=== PATIENT | male | born 1985 | race Caucasian/White ===

== ENCOUNTER 2018-03-30 10:44 | Inpatient (IN) | payer SELFPAY ==
[~2018-03-30] VITALS: Ht 157.5 cm; Wt 66.7 kg
[2018-03-30 01:00] VITALS: BP 99/55
[2018-03-30] MEDS ORDERED: ONDANSETRON HCL 4MG/2ML INJ IV STA (11:03)
[2018-03-30] MEDS ORDERED: SODIUM CHLORIDE 0.9% 1,000 ML IV ONE (11:03)
[2018-03-30] MEDS ORDERED: LORAZEPAM 2MG/ML CPJ IV ONE (11:15)
[2018-03-30 11:55] LABS: CHLORIDE 98 mEq/L (98-107)
[2018-03-30 12:00] LABS: ETHANOL BLOOD < 10 mg/dL
[2018-03-30 12:14] LABS: INR 1.3; PARTIAL THROMBOPLASTIN TIME 31.3 sec (23.4-31.0); PROTHROMBIN TIME 12.7 sec (9.1-11.1)
[2018-03-30 12:22] LABS: HEMATOCRIT. 53.9 % (42.0-52.0); HEMOGLOBIN. 18.4 g/dL (14.0-18.0); MEAN CORPUSCULAR VOLUME 85.2 fL (80.0-94.0); MEAN PLATELET VOLUME 9.4 fl (7.4-10.4); PLATELET 288 x1000/uL (130-400); RED BLOOD CELL COUNT 6.33 mill/uL (4.7-6.1); RED CELL DISTRIBUTION WIDTH 12.8 % (11.6-14.6)
[2018-03-30] MEDS ORDERED: FAMOTIDINE 20MG/2ML VIAL IV ONE (12:30)
[2018-03-30] MEDS ORDERED: ASPIRIN 325MG EC TABLET PO ONE (12:30)
[2018-03-30] MEDS ORDERED: MAGNESIUM/ALUMINUM HYDROXIDE/SIMETHICONE 30ML UDC PO ONE (12:30)
[2018-03-30] MEDS ORDERED: LEVOFLOXACIN 500MG PREMIX 100 ML IV ONE (12:45)
[2018-03-30] MEDS ORDERED: NOREPINEPHRINE 4 MG in DEXT 5% WATER 246 ML IV ONE ×2 (13:30→16:30)
[2018-03-30 13:45] LABS: PLATELET ESTIMATE NORMAL
[2018-03-30] MEDS ORDERED: NOREPINEPHRINE 4 MG in DEXTROSE 5% WATER 250 ML IV PRN (13:45)
[2018-03-30] MEDS ORDERED: ENOXAPARIN 80MG/0.8ML SYR SUBCUT ONE ×2 (13:45→18:21)
[2018-03-30] MEDS ORDERED: PHENYLEPHRINE 20 MG in DEXT 5% WATER 498 ML IV PRN ×2 (13:45→19:15)
[2018-03-30 13:51] LABS: BG BASE EXCESS -4.4 mmol/L (-2.0-2.0); BG CARBOXYHEMOGLOBIN 0.4 % (0.5-1.5); BG DEOXYHEMOGLOBIN 15.3 % (0.0-5.0); BG FRACTION INSPIRED OXYGEN 100; BG METHEMOGLOBIN 0.5 % (0.0-1.5); BG OXYGEN SATURATION 84.6 % (92.0-98.5); BG OXYHEMOGLOBIN 83.8 % (94.0-97.0); BG PCO2 31.1 mmHg (35.0-45.0); BG PH 7.404 (7.350-7.450); BG PO2 50.9 mmHg (75.0-100.0); BG SAMPLE SITE RIGHT BRACHIAL; BG VENT MODE MASK - NRB
[2018-03-30] MEDS ORDERED: CALCIUM CHLORIDE 1GM/10ML SYR IV ONE (14:00)
[2018-03-30] MEDS ORDERED: PROPOFOL 10MG/ML 100ML 100 ML IV ONE ×2 (14:00→17:30)
[2018-03-30] MEDS ORDERED: EPINEPHRINE 0.1MG/ML (1:10,000) 10ML SYR ONE ×2 (14:00)
[2018-03-30] MEDS ORDERED: ATROPINE SULFATE 1MG/10ML SYR ONE (14:00)
[2018-03-30] MEDS ORDERED: SUCCINYLCHOLINE CHLORIDE 200MG/10ML VIAL IV ONE ×2 (14:00)
[2018-03-30] MEDS ORDERED: NORMAL SALINE 0.9% 10 ML SYR ONE (14:00)
[2018-03-30] MEDS ORDERED: ETOMIDATE 2MG/ML 10ML VIAL IV ONE (14:00)
[2018-03-30] MEDS ORDERED: SODIUM BICARBONATE 7.5% 0.9 MEQ/ML 50ML SYR IV ONE ×2 (14:00)
[2018-03-30] MEDS ORDERED: LORAZEPAM 2MG/ML CPJ ONE (14:25)
[2018-03-30 14:38] LABS: CREATINE KINASE 355 IU/L (39-308)
[2018-03-30 15:07] LABS: CLARITY URINE CLEAR (CLEAR); COLOR URINE DARK YELLOW (YELLOW); KETONES URINE 3+ (NEGATIVE); LEUKOCYTE ESTERASE URINE NEGATIVE (NEGATIVE); NITRITE URINE NEGATIVE (NEGATIVE); OCCULT BLOOD URINE TRACE (NEGATIVE); PROTEIN URINE 2+ (NEGATIVE); SPECIFIC GRAVITY URINE 1.037 (1.005-1.030)
[2018-03-30 15:13] LABS: *AMPHETAMINES SCREEN URINE PRESUMTIVE POSITIVE (NEGATIVE); *BARBITURATES SCREEN URINE NEGATIVE (NEGATIVE); *BENZODIAZEPINES SCREEN URINE NEGATIVE (NEGATIVE); *COCAINE SCREEN URINE NEGATIVE (NEGATIVE); METHADONE URINE SCREEN PRESUMTIVE POSITIVE (NEGATIVE); OPIATES URINE SCREEN NEGATIVE (NEGATIVE)
[2018-03-30 15:14] LABS: CANNABINOID URINE SCREEN PRESUMTIVE POSITIVE (NEGATIVE); PHENCYCLIDINE URINE SCREEN NEGATIVE (NEGATIVE)
[2018-03-30] MEDS ORDERED: CEFEPIME 2,000 MG in DEXT 5% WATER 100 ML IV SCH (16:00)
[2018-03-30] MEDS ORDERED: PANTOPRAZOLE SODIUM 40 MG/VIAL IV NR (16:00)
[2018-03-30] MEDS ORDERED: IPRATROPIUM/ALBUTEROL 0.5-3(2.5)MG/3ML NEB HHN PRN (16:00)
[2018-03-30] MEDS ORDERED: DEXT 5%/0.45% NACL 1000ML 1,000 ML IV SCH (16:15)
[2018-03-30] MEDS ORDERED: ACETAMINOPHEN 325MG TABLET PO PRN (16:30)
[2018-03-30 16:33] LABS: BG BASE EXCESS -7.5 mmol/L (-2.0-2.0); BG CARBOXYHEMOGLOBIN 0.2 % (0.5-1.5); BG DEOXYHEMOGLOBIN 13.6 % (0.0-5.0); BG FRACTION INSPIRED OXYGEN 100; BG METHEMOGLOBIN 0.4 % (0.0-1.5); BG OXYGEN SATURATION 86.3 % (92.0-98.5); BG OXYHEMOGLOBIN 85.8 % (94.0-97.0); BG PCO2 36.7 mmHg (35.0-45.0); BG PH 7.308 (7.350-7.450); BG PO2 57.6 mmHg (75.0-100.0); BG SAMPLE SITE RIGHT BRACHIAL; BG TIDAL VOLUME(mL) 550 mL; BG TOTAL HEMOGLOBIN 16.7 g/dL (12.0-18.0); BG VENT MODE VENT - A/C; BG VENT RATE 16 set
[2018-03-30 16:49] LABS: T4 FREE 1.35 ng/dL (0.76-1.46)
[2018-03-30] MEDS ORDERED: CEFEPIME 2,000 MG in DEXT 5% WATER 100 ML IV NR (17:30)
[2018-03-30] MEDS ORDERED: METRONIDAZOLE 500 MG PREMIX 100 ML IV SCH (17:30)
[2018-03-30] MEDS ORDERED: DIGOXIN 500MCG/2ML AMP IV NR (19:30)
[2018-03-30] MEDS ORDERED: MIDAZOLAM HCL 50 MG in DEXTROSE 5% WATER 50ML IV PRN (19:30)
[2018-03-30] MEDS ORDERED: VERAPAMIL HCL 2.5 MG/1 ML 2ML VIAL IV PRN (21:15)
[2018-03-30 22:10] LABS: BG BASE EXCESS -2.4 mmol/L (-2.0-2.0); BG CARBOXYHEMOGLOBIN 0.8 % (0.5-1.5); BG DEOXYHEMOGLOBIN 26.9 % (0.0-5.0); BG FRACTION INSPIRED OXYGEN 100; BG HCO3 ACT 20.8 mmol/L (22.0-26.0); BG METHEMOGLOBIN 0.2 % (0.0-1.5); BG OXYGEN SATURATION 72.8 % (92.0-98.5); BG OXYHEMOGLOBIN 72.1 % (94.0-97.0); BG PCO2 32.3 mmHg (35.0-45.0); BG PH 7.427 (7.350-7.450); BG PO2 37.1 mmHg (75.0-100.0); BG SAMPLE SITE RIGHT RADIAL; BG TIDAL VOLUME(mL) 500 mL; BG TOTAL HEMOGLOBIN 16.2 g/dL (12.0-18.0); BG VENT MODE VENT - A/C; BG VENT RATE 14 set
[2018-03-30] MEDS ORDERED: PROPOFOL 10MG/ML 100ML 100 ML IV PRN (23:13)
[2018-03-30] MEDS: DEXT 5%/0.45% NACL 1000ML 1,000 ML IV SCH (23:14)
[2018-03-30] MEDS ORDERED: ONDANSETRON HCL 4MG/2ML INJ IV PRN (23:14)
[2018-03-30] MEDS ORDERED: ALBUMIN HUMAN 25GM/100ML (25%) IV SCH (23:15)
[2018-03-30 23:16] VITALS: BP 73/49
[2018-03-30] MEDS: PANTOPRAZOLE SODIUM 40 MG/VIAL IV SCH (23:18)
[2018-03-30 23:30] VITALS: BP 87/55
[2018-03-30] MEDS: ALBUMIN HUMAN 25GM/100ML (25%) IV SCH (23:41)
[2018-03-30 23:44] VITALS: BP 100/65
[2018-03-30 23:47] VITALS: BP 100/40
[2018-03-31] VITALS (96 sets, daily range): BP systolic 61–155; BP diastolic 25–101
[2018-03-31] MEDS ORDERED: VASOPRESSIN 10 UNIT in SODIUM CHLORIDE 0.9% 99.5 ML IV SCH ×2
[2018-03-31] MEDS ORDERED: VANCOMYCIN 1250MG in DEXTROSE 5% WATER 250ML IV SCH (01:00)
[2018-03-31] MEDS: NOREPINEPHRINE 16 MG in DEXT 5% WATER 234 ML IV PRN ×2 (01:51→09:28)
[2018-03-31] MEDS: BUDESONIDE 0.5MG/2ML NEB HHN SCH ×3 (01:52→20:53)
[2018-03-31] MEDS: PHENYLEPHRINE 40 MG in DEXT 5% WATER 246 ML IV PRN ×2 (01:52→02:33)
[2018-03-31] MEDS: EPINEPHRINE 1 MG in SODIUM CHLORIDE 0.9% 249 ML IV PRN ×2 (01:57→06:08)
[2018-03-31] MEDS: VASOPRESSIN 10 UNIT in SODIUM CHLORIDE 0.9% 99.5 ML IV SCH ×5 (02:01→23:00)
[2018-03-31] MEDS: METRONIDAZOLE 500 MG PREMIX 100 ML IV SCH ×3 (02:35→17:06)
[2018-03-31] MEDS: CEFEPIME 2,000 MG in DEXT 5% WATER 100 ML IV SCH ×2 (02:35→14:20)
[2018-03-31 06:16] LABS: CREATINE KINASE MB FRACTION 15.5 ng/mL (0.5-3.6)
[2018-03-31] MEDS ORDERED: PHENYLEPHRINE 40 MG in DEXT 5% WATER 500 ML IV ONE (06:45)
[2018-03-31] MEDS: PHENYLEPHRINE 80 MG in DEXT 5% WATER 492 ML IV PRN ×3 (07:14→23:05)
[2018-03-31] MEDS: ALBUMIN HUMAN 25GM/100ML (25%) IV SCH ×2 (07:45→23:05)
[2018-03-31] MEDS: IPRATROPIUM BROMIDE (0.02%) 0.5MG/2.5ML NEB HHN SCH ×3 (08:00→20:53)
[2018-03-31 08:21] LABS: BG BASE EXCESS -2.5 mmol/L (-2.0-2.0); BG CARBOXYHEMOGLOBIN 0.5 % (0.5-1.5); BG DEOXYHEMOGLOBIN 44.9 % (0.0-5.0); BG FRACTION INSPIRED OXYGEN 100; BG HCO3 ACT 22.9 mmol/L (22.0-26.0); BG METHEMOGLOBIN 0.3 % (0.0-1.5); BG OXYGEN SATURATION 54.7 % (92.0-98.5); BG OXYHEMOGLOBIN 54.3 % (94.0-97.0); BG PH 7.355 (7.350-7.450); BG PO2 < 30.3 mmHg (75.0-100.0); BG SAMPLE SITE RIGHT BRACHIAL; BG TIDAL VOLUME(mL) 500 mL; BG TOTAL HEMOGLOBIN 13.8 g/dL (12.0-18.0); BG VENT MODE VENT - A/C; BG VENT RATE 14 set
[2018-03-31] MEDS ORDERED: VANCOMYCIN 1 G PREMIX 200 ML IV SCH (09:00)
[2018-03-31] MEDS ORDERED: SODIUM BICARBONATE 8.4% 1 MEQ/ML 50ML SYR IV NR (09:00)
[2018-03-31] MEDS ORDERED: PANTOPRAZOLE SODIUM 40 MG/VIAL IV SCH (09:00)
[2018-03-31] MEDS: PANTOPRAZOLE SODIUM 40 MG/VIAL IV SCH (09:07)
[2018-03-31] MEDS: ENOXAPARIN 80MG/0.8ML SYR SUBCUT SCH ×2 (09:14→23:05)
[2018-03-31] MEDS: DEXT 5%/0.45% NACL 1000ML 1,000 ML IV SCH ×2 (09:15→17:08)
[2018-03-31] MEDS: EPINEPHRINE 2 MG in SODIUM CHLORIDE 0.9% 498 ML IV PRN ×4 (09:27→23:56)
[2018-03-31] MEDS ORDERED: PROPOFOL 10MG/ML 100ML 100 ML IV PRN (10:15)
[2018-03-31] MEDS ORDERED: AMIODARONE HCL 900 MG in DEXT 5% WATER 482 ML IV SCH (11:00)
[2018-03-31 11:24] LABS: BG BASE EXCESS -0.9 mmol/L (-2.0-2.0); BG CARBOXYHEMOGLOBIN 0.6 % (0.5-1.5); BG DEOXYHEMOGLOBIN 30.5 % (0.0-5.0); BG FRACTION INSPIRED OXYGEN 100; BG HCO3 ACT 23.7 mmol/L (22.0-26.0); BG METHEMOGLOBIN 0.2 % (0.0-1.5); BG OXYGEN SATURATION 69.3 % (92.0-98.5); BG OXYHEMOGLOBIN 68.7 % (94.0-97.0); BG PCO2 39.2 mmHg (35.0-45.0); BG PO2 35.9 mmHg (75.0-100.0); BG SAMPLE SITE RIGHT BRACHIAL; BG TIDAL VOLUME(mL) 500 mL; BG TOTAL HEMOGLOBIN 14.2 g/dL (12.0-18.0); BG VENT MODE VENT - A/C; BG VENT RATE 28 set
[2018-03-31 12:28] LABS: BASOPHILS % 0.3 % (0.0-2.0); EOSINOPHILS % 0.7 % (0.0-5.0); HEMATOCRIT. 37.5 % (42.0-52.0); HEMOGLOBIN. 12.9 g/dL (14.0-18.0); LYMPHOCYTES % 16.5 % (20.0-50.0); MEAN CORPUSCULAR HEMOGLOBIN 29.6 pg (28.0-32.0); MEAN CORPUSCULAR VOLUME 86.3 fL (80.0-94.0); MEAN PLATELET VOLUME 8.8 fl (7.4-10.4); MONOCYTES % 2.7 % (2.0-8.0); NEUTROPHILS % 79.8 % (40.0-76.0); PLATELET 164 x1000/uL (130-400); RED BLOOD CELL COUNT 4.34 mill/uL (4.7-6.1)
[2018-03-31 12:48] LABS: D-DIMER 13.63 mg/L FEU (<0.50); INR 1.6; PROTHROMBIN TIME 15.8 sec (9.1-11.1)
[2018-03-31] MEDS: NOREPINEPHRINE 32 MG in DEXT 5% WATER 468 ML IV PRN (17:34)
[2018-04-01] VITALS (31 sets, daily range): BP systolic 0–131; BP diastolic 0–106
[2018-04-01] MEDS: EPINEPHRINE 2 MG in SODIUM CHLORIDE 0.9% 498 ML IV PRN (00:08)
[2018-04-01] MEDS: METRONIDAZOLE 500 MG PREMIX 100 ML IV SCH (01:33)
[2018-04-01] MEDS: IPRATROPIUM BROMIDE (0.02%) 0.5MG/2.5ML NEB HHN SCH ×2 (01:54→08:05)
[2018-04-01] MEDS ORDERED: VANCOMYCIN 750 MG PREMIX 150 ML IV SCH (02:00)
[2018-04-01] MEDS: VASOPRESSIN 10 UNIT in SODIUM CHLORIDE 0.9% 99.5 ML IV SCH ×2 (03:23→06:20)
[2018-04-01] MEDS: DEXT 5%/0.45% NACL 1000ML 1,000 ML IV SCH (03:24)
[2018-04-01] MEDS: CEFEPIME 2,000 MG in DEXT 5% WATER 100 ML IV SCH (03:24)
[2018-04-01] MEDS: PHENYLEPHRINE 80 MG in DEXT 5% WATER 492 ML IV PRN ×2 (06:19→06:33)
[2018-04-01] MEDS: NOREPINEPHRINE 32 MG in DEXT 5% WATER 468 ML IV PRN (06:21)
[2018-04-01] MEDS: ALBUMIN HUMAN 25GM/100ML (25%) IV SCH (06:51)
[2018-04-01 07:59] LABS: BASOPHILS % 0.2 % (0.0-2.0); EOSINOPHILS % 0.9 % (0.0-5.0); HEMATOCRIT. 33.7 % (42.0-52.0); HEMOGLOBIN. 11.1 g/dL (14.0-18.0); LYMPHOCYTES % 12.8 % (20.0-50.0); MEAN CORPUSCULAR HEMOGLOBIN 29.2 pg (28.0-32.0); MEAN PLATELET VOLUME 9.5 fl (7.4-10.4); MONOCYTES % 1.7 % (2.0-8.0); NEUTROPHILS % 84.4 % (40.0-76.0); PLATELET 163 x1000/uL (130-400); RED BLOOD CELL COUNT 3.79 mill/uL (4.7-6.1); RED CELL DISTRIBUTION WIDTH 13.2 % (11.6-14.6)
[2018-04-01] MEDS: BUDESONIDE 0.5MG/2ML NEB HHN SCH (08:05)
[2018-04-01 08:40] LABS: BG BASE EXCESS -12.6 mmol/L (-2.0-2.0); BG CARBOXYHEMOGLOBIN 0.1 % (0.5-1.5); BG FRACTION INSPIRED OXYGEN 100; BG HCO3 ACT 17.6 mmol/L (22.0-26.0); BG METHEMOGLOBIN 0.3 % (0.0-1.5); BG OXYGEN SATURATION 58.8 % (92.0-98.5); BG OXYHEMOGLOBIN 58.6 % (94.0-97.0); BG PCO2 61.1 mmHg (35.0-45.0); BG PH 7.078 (7.350-7.450); BG PO2 33.4 mmHg (75.0-100.0); BG SAMPLE SITE RIGHT BRACHIAL; BG TIDAL VOLUME(mL) 500 mL; BG TOTAL HEMOGLOBIN 11.9 g/dL (12.0-18.0); BG VENT MODE VENT - A/C; BG VENT RATE 28 set
[2018-04-01] MEDS ORDERED: SODIUM BICARBONATE 8.4% 1 MEQ/ML 50ML SYR IV SCH (08:45)
== END 2018-04-01 11:30 | disposition expired | DRG 720 ==
LOC: ER 10:44 → CVICU 13:52 → EDBEDREQ 14:06 → EDBEDREQSVC 14:06 → ENRESERV 21:15
PROVIDERS: ADMIT Internal Medicine; ATTEND Internal Medicine
PROC: 5A1945Z Respiratory Ventilation, 24-96 Consecutive Hours (ICD-10-PCS; 2018-03-30)
PROC: 0BH17EZ Insertion of Endotracheal Airway into Trachea, Via Natural or Artificial Opening (ICD-10-PCS; 2018-03-30)
PROC: 5A12012 Performance of Cardiac Output, Single, Manual (ICD-10-PCS; principal; 2018-03-31)
PROC: 5A12012 Performance of Cardiac Output, Single, Manual (ICD-10-PCS; 2018-04-01)
DX: A41.9 Sepsis, unspecified organism (principal); I21.4 Non-ST elevation (NSTEMI) myocardial infarction; J96.01 Acute respiratory failure with hypoxia; E43 Unspecified severe protein-calorie malnutrition; G93.40 Encephalopathy, unspecified; J18.9 Pneumonia, unspecified organism; R57.0 Cardiogenic shock; R65.21 Severe sepsis with septic shock; E87.2 Acidosis; F15.10 Other stimulant abuse, uncomplicated; F12.10 Cannabis abuse, uncomplicated; M62.82 Rhabdomyolysis; I42.9 Cardiomyopathy, unspecified; J84.89 Other specified interstitial pulmonary diseases; F17.200 Nicotine dependence, unspecified, uncomplicated; I47.1 Supraventricular tachycardia; I82.411 Acute embolism and thrombosis of right femoral vein; Z68.26 Body mass index [BMI] 26.0-26.9, adult; Z90.49 Acquired absence of other specified parts of digestive tract
CPT/HCPCS: 31500; 36415; 36556; 36600; 71045; 80048; 80053; 80061; 80305; 81003; 82375; 82550; 82553; 82805; 82962; 83036; 83605; 83690; 83880; 84145; 84439; 84443; 84478; 84481; 84484; 85025; 85379; 85384; 85610; 85730; 87040; 87070; 87086; 92950; 93005; 93306; 93970; 94003; 94640; 96361; 96365; 96366; 96367; 96368; 96375; 99291; A4216; A6261; C9113; G0482; J0282; J0330; J0461; J0692; J1160; J1650; J1956; J2060; J2250; J2370; J2405; J2704; J3370; J3490; J7030; J7040; J7050; J7060; J7626; P9047; A4315